=== PATIENT | male | born 1965 | race Caucasian/White ===

== ENCOUNTER 2017-11-23 12:09 | Emergency (ER) | payer BC ==
[2017-11-23] MEDS ORDERED: ALBUTEROL NEBULIZED 2.5 MG/3 ML INHALATION STA (12:30)
[2017-11-23] MEDS ORDERED: IPRATROPIUM 0.5 MG/2.5 ML NEBU INHALATION STA (12:30)
[2017-11-23] MEDS ORDERED: DEXAMETHASONE SOD PHOSPHATE 10 MG/ML 1 ML VIAL IV STA (12:31)
--- NOTE | 2017-11-23 12:36 | ED ---
General Adult HPI - General Chief complaint: Shortness of Breath Stated complaint: Pneumonia Time Seen by Provider: 11/23/17 12:19 Source: patient, RN notes reviewed, old records reviewed Mode of arrival: ambulatory Limitations: no limitations - History of Present Illness Initial comments: 52-year-old male presents for evaluation of cough and dyspnea. Patient has had a cough for the past 4 weeks. He was initially seen at urgent care, given steroids and antibiotic, cough felt improved. He did see his primary care physician proximally one week ago, was reinitiated on both antibiotics and steroids, cough has been persistent since that time. Cough is dry, nonproductive. Patient does have some mild chest pain associated with this which is worse with cough. Denies any central radiating or typical chest pain. No abdominal pain. No nausea vomiting. Patient initially had a fever approximately 4 weeks ago, he has not been febrile over the past week. He is was at bedside admitted to having a upper respiratory tract infection. Patient has no diagnosed history of asthma or COPD, he does have a smoking history from age 16 to his late 20s. - Related Data Home Medications Medication Instructions Recorded Confirmed Albuterol Inhaler [Ventolin Hfa 2 puff INHALATION RT-Q2H PRN 11/23/17 11/23/17 Inhaler] Albuterol Nebulized [Ventolin 2.5 mg INHALATION RT-Q4H PRN 11/23/17 11/23/17 Nebulized] Levofloxacin [Levaquin] 500 mg PO DAILY 11/23/17 11/23/17 Losartan/Hydrochlorothiazide 1 tab PO DAILY 11/23/17 11/23/17 [Losartan-Hctz 100-25 mg Tab] amLODIPine [Norvasc] 10 mg PO DAILY 11/23/17 11/23/17 buPROPion HCL [Wellbutrin XL] 300 mg PO DAILY 11/23/17 11/23/17 predniSONE See Taper PO DAILY 11/23/17 11/23/17 Previous Rx's Medication Instructions Recorded predniSONE 50 mg PO DAILY #5 tab 11/23/17 Allergies Allergy/AdvReac Type Severity Reaction Status Date / Time TE Inhibitors AdvReac Cough Verified 11/23/17 12:54 Review of Systems ROS Statement: Those systems with pertinent positive or pertinent negative responses have been documented in the HPI. ROS Other: All systems not noted in ROS Statement are negative. Past Medical History Past Medical History: Hypertension History of Any Multi-Drug Resistant Organisms: None Reported Past Surgical History: Cholecystectomy, Orthopedic Surgery Additional Past Surgical History / Comment(s): right shoulder surgery Past Psychological History: PTSD Smoking Status: Former smoker Past Alcohol Use History: Occasional Past Drug Use History: None Reported General Exam Limitations: no limitations General appearance: alert, in no apparent distress Head exam: Present: atraumatic, normocephalic Eye exam: Present: normal appearance, PERRL ENT exam: Present: normal exam Neck exam: Present: normal inspection. Absent: tenderness, meningismus Respiratory exam: Present: normal lung sounds bilaterally, other ( bronchospastic cough). Absent: respiratory distress, wheezes, rales, rhonchi Cardiovascular Exam: Present: regular rate, normal rhythm GI/Abdominal exam: Present: soft. Absent: distended, tenderness, guarding Extremities exam: Present: normal inspection, normal capillary refill. Absent: pedal edema, calf tenderness Back exam: Present: normal inspection, full ROM Neurological exam: Present: alert, oriented X3, CN II-XII intact. Absent: motor sensory deficit Psychiatric exam: Present: normal affect, normal mood Skin exam: Present: warm, dry, intact. Absent: cyanosis, diaphoretic Course Vital Signs 11/23/17 11/23/17 11/23/17 12:13 12:51 12:55 Temperature 97.9 F Pulse Rate 91 89 Respiratory 20 20 Rate Blood Pressure 105/68 O2 Sat by Pulse 96 Oximetry 11/23/17 13:10 Temperature Pulse Rate 91 Respiratory Rate Blood Pressure O2 Sat by Pulse Oximetry EKG Findings - EKG Comments: EKG Findings:: EKG shows normal sinus rhythm, ventricular rate 87, ME 150, castration 110, QTC 471, no signs of ischemia. Medical Decision Making - Medical Decision Making patient presenting with chief complaint of cough and dyspnea. The symptoms been present for approximately one month. Patient was sent in for evaluation by his primary care physician. There was some concern over CT findings which patient had earlier today, showed clear chest, no mass, no nodule, no effusion or pneumothorax. There was minimal diarrhea and the tree. Patient has had gallstones, cholecystectomy, and sphincterotomy. These are likely postsurgical changes. Patient has no fever, no right upper quadrant pain. No vomiting. He will return with any development of these symptoms. Laboratory studies reveal white blood cell count 12.3 mildly elevated, patient is on steroids. Hemoglobin stable. D-dimer negative. Troponin and BNP negative. A LT is mildly elevated, no recent for comparison patient is informed of this and will follow-up with his primary care physician for repeat testing. EKG shows no signs of ischemia. On reevaluation, patient is feeling much better, steroids and breathing treatment had improved his symptoms. Cough improved. He will continue taking last albuterol at home. He is restarted on a course of steroids. He will follow-up with his primary care physician and may require pulmonary follow-up in the near future. - Lab Data Result diagrams: 11/23/17 12:41 11/23/17 12:41 Lab Results 11/23/17 11/23/17 11/23/17 Range/Units 12:41 12:41 12:41 WBC 12.3 H (3.8-10.6) k/uL RBC 5.05 (4.30-5.90) m/uL Hgb 15.4 (13.0-17.5) gm/dL Hct 45.5 (39.0-53.0) % MCV 90.1 (80.0-100.0) fL MCH 30.4 (25.0-35.0) pg MCHC 33.8 (31.0-37.0) g/dL RDW 12.1 (11.5-15.5) % Plt Count 289 (150-450) k/uL Neutrophils % 72 % Lymphocytes % 18 % Monocytes % 7 % Eosinophils % 1 % Basophils % 0 % Neutrophils # 8.8 H (1.3-7.7) k/uL Lymphocytes # 2.2 (1.0-4.8) k/uL Monocytes # 0.9 (0-1.0) k/uL Eosinophils # 0.1 (0-0.7) k/uL Basophils # 0.0 (0-0.2) k/uL PT (9.0-12.0) sec INR (<1.2) APTT (22.0-30.0) sec D-Dimer (<0.60) mg/L FEU Sodium 138 (137-145) mmol/L Potassium 3.8 (3.5-5.1) mmol/L Chloride 104 (98-107) mmol/L Carbon Dioxide 24 (22-30) mmol/L Anion Gap 10 mmol/L BUN 19 (9-20) mg/dL Creatinine 0.73 (0.66-1.25) mg/dL Est GFR (MDRD) Af Amer >60 (>60 ml/min/1.73 sqM) Est GFR (MDRD) Non-Af >60 (>60 ml/min/1.73 sqM) Glucose 70 L (74-99) mg/dL Calcium 9.4 (8.4-10.2) mg/dL Magnesium 2.1 (1.6-2.3) mg/dL Total Bilirubin 0.5 (0.2-1.3) mg/dL AST 30 (17-59) U/L ALT 156 H (21-72) U/L Alkaline Phosphatase 62 (38-126) U/L Total Creatine Kinase 60 (55-170) U/L CK-MB (CK-2) 0.5 (0.0-2.4) ng/mL CK-MB (CK-2) Rel Index 0.8 Troponin I <0.012 (0.000-0.034) ng/mL NT-Pro-B Natriuret Pep pg/mL Total Protein 6.2 L (6.3-8.2) g/dL Albumin 3.7 (3.5-5.0) g/dL 11/23/17 11/23/17 Range/Units 12:41 12:41 WBC (3.8-10.6) k/uL RBC (4.30-5.90) m/uL Hgb (13.0-17.5) gm/dL Hct (39.0-53.0) % MCV (80.0-100.0) fL MCH (25.0-35.0) pg MCHC (31.0-37.0) g/dL RDW (11.5-15.5) % Plt Count (150-450) k/uL Neutrophils % % Lymphocytes % % Monocytes % % Eosinophils % % Basophils % % Neutrophils # (1.3-7.7) k/uL Lymphocytes # (1.0-4.8) k/uL Monocytes # (0-1.0) k/uL Eosinophils # (0-0.7) k/uL Basophils # (0-0.2) k/uL PT 9.7 (9.0-12.0) sec INR 1.0 (<1.2) APTT 22.0 (22.0-30.0) sec D-Dimer 0.25 (<0.60) mg/L FEU Sodium (137-145) mmol/L Potassium (3.5-5.1) mmol/L Chloride (98-107) mmol/L Carbon Dioxide (22-30) mmol/L Anion Gap mmol/L BUN (9-20) mg/dL Creatinine (0.66-1.25) mg/dL Est GFR (MDRD) Af Amer (>60 ml/min/1.73 sqM) Est GFR (MDRD) Non-Af (>60 ml/min/1.73 sqM) Glucose (74-99) mg/dL Calcium (8.4-10.2) mg/dL Magnesium (1.6-2.3) mg/dL Total Bilirubin (0.2-1.3) mg/dL AST (17-59) U/L ALT (21-72) U/L Alkaline Phosphatase (38-126) U/L Total Creatine Kinase (55-170) U/L CK-MB (CK-2) (0.0-2.4) ng/mL CK-MB (CK-2) Rel Index Troponin I (0.000-0.034) ng/mL NT-Pro-B Natriuret Pep 20 pg/mL Total Protein (6.3-8.2) g/dL Albumin (3.5-5.0) g/dL Disposition Clinical Impression: Chronic bronchitis Disposition: HOME SELF-CARE Condition: Good Instructions: Chronic Bronchitis (ED), Chronic Cough (ED) Prescriptions: predniSONE 50 mg PO DAILY #5 tab Referrals: Josh Cloud MD [Primary Care Provider] - 1-2 days Time of Disposition: 14:32
[2017-11-23 13:03] LABS: Basophils % (A) 0 %; Eosinophils # (A) 0.1 k/uL (0-0.7); Eosinophils % (A) 1 %; HCT 45.5 % (39.0-53.0); HGB 15.4 gm/dL (13.0-17.5); Lymphocytes # (A) 2.2 k/uL (1.0-4.8); Lymphocytes % (A) 18 %; MCH 30.4 pg (25.0-35.0); MCHC 33.8 g/dL (31.0-37.0); MCV 90.1 fL (80.0-100.0); Mean Platelet Volume 6.7; Monocytes # (A) 0.9 k/uL (0-1.0); Monocytes % (A) 7 %; Neutrophils # (A) 8.8 k/uL (1.3-7.7); Neutrophils % (A) 72 %; Platelet Count 289 k/uL (150-450); RBC 5.05 m/uL (4.30-5.90); RDW 12.1 % (11.5-15.5); WBC 12.3 k/uL (3.8-10.6)
[2017-11-23 13:14] LABS: D-Dimer 0.25 mg/L FEU (<0.60)
[2017-11-23 13:18] LABS: ALT 156 U/L (21-72); AST 30 U/L (17-59); Albumin 3.7 g/dL (3.5-5.0); Alkaline Phosphatase 62 U/L (38-126); Anion Gap 10 mmol/L; Blood Urea Nitrogen 19 mg/dL (9-20); Calcium 9.4 mg/dL (8.4-10.2); Carbon Dioxide 24 mmol/L (22-30); Chloride 104 mmol/L (98-107); Glucose 70 mg/dL (74-99); Magnesium 2.1 mg/dL (1.6-2.3); Potassium 3.8 mmol/L (3.5-5.1); Prothrombin Time 9.7 sec (9.0-12.0); Sodium 138 mmol/L (137-145); Total Bilirubin 0.5 mg/dL (0.2-1.3); Total Protein 6.2 g/dL (6.3-8.2)
[2017-11-23 13:24] LABS: Creatine Kinase 60 U/L (55-170)
[2017-11-23 13:37] LABS: Creatine Kinase MB 0.5 ng/mL (0.0-2.4); Troponin I <0.012 ng/mL (0.000-0.034)
[2017-11-23 14:46] VITALS: BP 130/65; PULSE 77; RESP 16; TEMP 98
== END 2017-11-23 14:45 | disposition home or self-care (01) ==
LOC: EC 12:09
DX: J42 Unspecified chronic bronchitis (principal); I10 Essential (primary) hypertension; F43.10 Post-traumatic stress disorder, unspecified; Z87.891 Personal history of nicotine dependence; Z79.52 Long term (current) use of systemic steroids; Z79.899 Other long term (current) drug therapy; Z88.8 Allergy status to other drugs, medicaments and biological substances
CPT/HCPCS: 36415; 94640; 93005; 85379; 83880; 80053; 82550; 82553; 83735; 84484; 85025; 85610; 85730; 99285; 96374; J1100; 71250

== ENCOUNTER → 2017-11-23 | Outpatient (CLI) | payer BC ==
--- NOTE | 2017-11-23 11:50 | CT ---
EXAMINATION TYPE: CT chest wo con DATE OF EXAM: 11/23/2017 COMPARISON: NONE HISTORY: Pneumonia, cough CT DLP: 745 mGycm. Automated Exposure Control for Dose Reduction was Utilized. TECHNIQUE: CT scan of the thorax is performed without IV contrast. FINDINGS: Lack of intravenous contrast could compromise sensitivity. LUNGS: The lungs are grossly clear, there is no concerning parenchymal mass or nodule identified. T here is no pleural effusion or pneumothorax seen. The tracheobronchial tree is patent. MEDIASTINUM: Lack of IV contrast is noted to limit evaluation for mediastinal and especially hilar ad enopathy. There are no definitive greater than 1 cm hilar or mediastinal lymph nodes. There are calci fied left hilar nodes. Calcified left lower lobe granuloma is noted with some associated scarring. N o cardiomegaly or pericardial effusion is seen. OTHER: Patient is post cholecystectomy. Pneumobilia is present. Small focus of air also present at th e head of the pancreas. Coronary artery calcifications noted. IMPRESSION: Correlate for prior sphincterotomy causing pneumobilia. Postop change. Old granulomatous disease. Noncontrast exam.
== END | disposition home or self-care (01) ==
LOC: RADCTMAIN 11:12
PROVIDERS: ATTEND Family Medicine
DX: J18.9 Pneumonia, unspecified organism (principal); Z98.890 Other specified postprocedural states
CPT/HCPCS: 71250

== ENCOUNTER → 2017-12-14 | Outpatient (CLI) | payer BC ==
--- NOTE | 2017-12-14 09:38 | US ---
EXAMINATION TYPE: US abdomen complete DATE OF EXAM: 12/14/2017 COMPARISON: None CLINICAL HISTORY: 52-year-old male R94.5 Abnormal results of liver function study. Abnormal labs, GB removed x 1998 TECHNIQUE: Multiple sonographic images of the abdomen are obtained. FINDINGS: Liver Length: 16.2 cm CHD: 3.8 mm Spleen: 11.3 cm Right Kidney: 11.3 x 5.8 x 7.3 cm Left Kidney: 11.8 x 5.0 x 7.3 cm Pancreas: The tail is obscured by overlying bowel gas Liver: Borderline size with diffuse heterogeneity, echogenic appearance with far field attenuation. This secondarily limits assessment for focal lesion. Gallbladder: Surgically absent Evidence for sonographic Haley's sign: neg CHD: wnl Spleen: wnl Right Kidney: No hydronephrosis. There is either a medial parapelvic cyst or extrarenal pelvis measu ring 2.2 x 2.0 x 1.8 cm Left Kidney: No hydronephrosis Upper IVC: wnl Abd Aorta: Upper abdominal aorta is ectatic at 2.5 cm. IMPRESSION: 1. Borderline size of the liver with diffuse heterogeneity and increased attenuation. Correlate for h epatic steatosis or other nonspecific hepatocellular disease. 2. Status post cholecystectomy. No biliary ductal dilatation.
== END | disposition home or self-care (01) ==
LOC: RADUSWWP 08:57
PROVIDERS: ATTEND Family Medicine
DX: R94.5 Abnormal results of liver function studies (principal); Z90.49 Acquired absence of other specified parts of digestive tract
CPT/HCPCS: 76700

== ENCOUNTER 2018-01-02 12:05 | Day surgery (SDC) | payer BC ==
[2017-12-29 14:54] VITALS: BMI 36.9
[~2018-01-02 12:05] MED LIST: LACTATED RINGERS 1,000 ML IV SCH
[2018-01-02 12:36] VITALS: TEMP 97.6
[2018-01-02] MEDS ORDERED: LIDOCAINE 1% 20 ML VIAL (10MG/ML) FOR IV START INTRADERMA ONE (12:46)
[2018-01-02] MEDS ORDERED: PROPOFOL 10 MG/ML 20 ML VIAL IV ONE (12:51)
[2018-01-02] MEDS ORDERED: LIDOCAINE 1% INJ 10MG/ML (20 ML MDV) ONE (12:51)
[2018-01-02 13:20] VITALS: BP 140/87; PULSE 88; RESP 12
--- NOTE | 2018-01-02 13:20 | P.PCN ---
Date of Procedure: 01/02/18 Procedure(s) Performed: Procedure: Colonoscopy and polypectomy. Preoperative diagnosis: Screening for neoplasia. Postoperative diagnosis: Small rectal polyp snared but no large polyps or cancer. Preparation: HalfLytely prep. Sedation: Was provided by anesthesia. Brief clinical history: The patient is a 52-year-old male who is scheduled for this evaluation for screening for neoplasia age being his risk factor in addition to history of polyps. He has no abdominal complaints, bleeding or anemia. His last colonoscopy was around 5 years ago. Procedure: With the patient on his left lateral decubitus position and after informed consent and adequate sedation, the perianal area was inspected and it did not show any fissures or fistulas. There were no masses felt on digital rectal examination. The Olympus CFQ 160L video colonoscope was then inserted in the rectum in the usual fashion and advanced to the cecum. There was a small polyp in the rectum, within 1-2 cm from the anal canal, which I snared and retrieved by suction but there was no other significant polyps or tumors seen. I retroflexed the endoscope in the rectum before the endoscope was withdrawn. The patient tolerated the procedure well. Plan: The patient was reassured. He will follow up with you as planned and I recommended repeat exam in 5 years.
== END 2018-01-02 13:59 | disposition home or self-care (01) ==
LOC: ORWHC2ENDO 12:05
DX: Z12.11 Encounter for screening for malignant neoplasm of colon (principal); D12.8 Benign neoplasm of rectum; K44.9 Diaphragmatic hernia without obstruction or gangrene; I10 Essential (primary) hypertension; G47.33 Obstructive sleep apnea (adult) (pediatric); J45.909 Unspecified asthma, uncomplicated; Z79.899 Other long term (current) drug therapy; Z88.8 Allergy status to other drugs, medicaments and biological substances
CPT/HCPCS: 88305; 45385; J2001; J2704

== ENCOUNTER 2018-06-22 12:57 | Day surgery (SDC) | payer BC ==
[2018-06-22] MEDS ORDERED: LIDOCAINE 1% 20 ML VIAL (10MG/ML) FOR IV START INTRADERMA PRN (13:05)
[2018-06-22] MEDS ORDERED: LACTATED RINGERS 1,000 ML IV SCH (13:05)
[2018-06-22 13:17] VITALS: RESP 16; TEMP 98.1
[2018-06-22] MEDS ORDERED: LIDOCAINE 1% INJ 10MG/ML (20 ML MDV) ONE (14:04)
[2018-06-22] MEDS ORDERED: PROPOFOL 10 MG/ML 20 ML VIAL IV ONE (14:04)
--- NOTE | 2018-06-22 14:35 | P.PCN ---
Date of Procedure: 06/22/18 Procedure(s) Performed: Procedure: Esophagogastroduodenoscopy and biopsy. Preoperative diagnosis: Chronic reflux symptoms requiring therapy. Postoperative diagnosis: 1. Sliding hiatal hernia with no obvious esophagitis or complicated reflux disease. 2. Mild antral gastritis. 3. Multiple biopsies obtained from the duodenum, antrum and esophagus. Preparation sedation: Was provided by anesthesia. Brief clinical history: The patient is a 52-year-old male with chronic reflux symptoms that has been worsening over the last 4 to 6 months. Currently is taking PPI with improvement. This evaluation is scheduled to assess the degree of his esophagitis rule out complicated reflux disease or other pathology. Procedure: With the patient on his left lateral decubitus position and after informed consent and adequate sedation, I passed the Olympus-GIF 160 video upper endoscope through the cricopharyngeus down the esophagus. GE junction was around 40-41 cm from the incisors and there was a small sliding hiatal hernia. The esophagus did not show any obvious esophagitis or complicated reflux disease. The endoscope was then passed into the stomach which was insufflated with air and inspected in detail including the retroflex view in the cardia. There was some mottling and erythema in the antrum but no ulcers or erosions. Pyloric channel, duodenal bulb, post bulbar area and descending duodenum appeared within normal limits. Because of his symptoms, I obtained biopsies from the duodenum, antrum and esophagus then the endoscope was withdrawn. The patient tolerated the procedure well. Plan: The patient was reassured. Will await biopsy results and make further plans based on his course and biopsy results.
[2018-06-22 15:04] VITALS: BP 135/61; PULSE 69
== END 2018-06-22 15:09 | disposition home or self-care (01) ==
LOC: ORWHC2ENDO 12:57
DX: K29.50 Unspecified chronic gastritis without bleeding (principal); K21.9 Gastro-esophageal reflux disease without esophagitis; K44.9 Diaphragmatic hernia without obstruction or gangrene; G47.33 Obstructive sleep apnea (adult) (pediatric); I10 Essential (primary) hypertension; F32.9 Major depressive disorder, single episode, unspecified; F43.10 Post-traumatic stress disorder, unspecified; Z88.8 Allergy status to other drugs, medicaments and biological substances; Z79.899 Other long term (current) drug therapy
CPT/HCPCS: 88305; 43239; J2001; J2704

== ENCOUNTER → 2018-06-29 | Outpatient (CLI) | payer BC ==
[2018-06-29 13:25] VITALS: BMI 37.6
== END | disposition home or self-care (01) ==
LOC: MNTWWP 12:56
DX: K76.0 Fatty (change of) liver, not elsewhere classified (principal)
CPT/HCPCS: 97802

== ENCOUNTER → 2019-09-06 | Outpatient (CLI) | payer BC ==
--- NOTE | 2019-09-06 20:13 | CONS ---
CONSULTATION DATE OF SERVICE: 09/06/2019 This patient is a 54-year-old gentleman who has been re-evaluated in the sleep center for obstructive sleep apnea-hypopnea syndrome. HISTORY OF PRESENT ILLNESS/SLEEP-WAKE EVALUATION: This patient was diagnosed with obstructive sleep apnea in 2012. At that time apnea- hypopnea index was 22.3. He was started on treatment with CPAP. the patient tried to use CPAP, but he always had problems related to his nasal mask, and he wakes up from sleep with the CPAP. He was not able to use CPAP equipment for the last year because of that. At present his sleep schedule is from 6 a.m. until 2 p.m. 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 On his days off, he may sleep from 10 p.m. until 11 a.m. No problems with falling asleep. No TV in bedroom. He wakes up from sleep once with nocturia, episodes of heartburn and sweating. Russell Sleepiness Scale is 9. No history of hypnagogic hallucinations, sleep paralysis or cataplexy. PAST MEDICAL HISTORY: Past medical history is positive for hypertension and depression. PAST SURGICAL HISTORY: Cholecystectomy and surgery for rotator cuff problems. MEDICATIONS: 1. Amlodipine. 2. Sertraline. 3. Bupropion. 4. Losartan. SOCIAL HISTORY: Negative for smoking. Alcohol consumption occasional. FAMILY HISTORY: Hypertension. REVIEW OF SYSTEMS: The patient does not sleep well with the CPAP equipment. He feels sometimes sleepy during the day. PHYSICAL EXAMINATION: GENERAL: A pleasant gentleman without distress. VITAL SIGNS: BP 131/87, HR 79, RR 16, height 5 feet 8-1/2 inches, weight 254.6 pounds, body mass index 38.0, temperature 98.0, oxygen saturation at room air 95%. HEENT: PERRLA, EOMI. Evaluation of oropharynx showed tongue protrudes midline. Low position of soft palate. Mallampati III. Tonsils present bilaterally. Left tonsil more than right tonsil. NECK: Supple. No JVD. Thyroid is not palpable. LUNGS: Clear to percussion and to auscultation. Good air exchange. No wheezing or rhonchi. HEART: S1, S2 regular. No murmurs, gallops or rubs. ABDOMEN: Slightly obese. EXTREMITIES: No clubbing or cyanosis. HIGH SCHOOL MUSIC DIRECTOR: Awake, alert, and oriented X3. Cranial nerves 2 to 7 intact. There is no fasciculation or atrophy. noted. No focal deficits observed. IMPRESSION: 1. History of obstructive sleep apnea since 2012. The patient has tried to use CPAP equipment but has problems; awakenings from sleep; does not feel comfortable with the mask. He may feel sleepy during the day. Oropharynx reveals low position of soft palate. 2. Obesity; body mass index 38.0. 3. Hypertension. 4. History of depression. 5. Status post cholecystectomy. 6. Status post right rotator cuff surgery. PLAN: 1. Repeat the CPAP titration for re-evaluation of effective CPAP pressure at the present time and also to fit the patient with a comfortable mask. 2. Patient should receive new CPAP equipment after his sleep study. 3. Sleep hygiene with regular time in bed for at least 7-1/2 to 8 hours. 4. No driving if feeling any sleepiness. Thank you very much for allowing me to participate in the management of your patient. Sincerely, Eddy Gibson MD, PhD, FAASM Diplomat of [place] [employer] Specialties [place] [employer] Medicine Basket Mender of [facility] [place] MMODL / IJN: [id number] /
== END | disposition home or self-care (01) ==
LOC: SLEEP 14:42
PROVIDERS: ATTEND Internal Medicine
DX: G47.33 Obstructive sleep apnea (adult) (pediatric) (principal); E66.9 Obesity, unspecified; Z68.38 Body mass index [BMI] 38.0-38.9, adult; I10 Essential (primary) hypertension; Z86.59 Personal history of other mental and behavioral disorders; Z90.49 Acquired absence of other specified parts of digestive tract; Z98.890 Other specified postprocedural states
CPT/HCPCS: 99211

== ENCOUNTER → 2020-01-10 | Outpatient (CLI) | payer BC ==
--- NOTE | 2020-01-10 16:00 | PN ---
PROGRESS NOTE DATE OF SERVICE: 01/10/2020 This patient is a 54-year-old gentleman who has been followed in Sleep Center for treatment of obstructive sleep apnea-hypopnea syndrome. In October the patient had CPAP titration and after that received a new CPAP unit. Today is his first visit after he started to use his new CPAP equipment. The patient is able to use the machine, but sometimes he has problems with the mask. The mask was changed. Now he is using AirFit P30i nasal pillows, medium size. I checked his CPAP unit. Pressure is 11 cm of water. Usage for the last month was 25/30 nights and 17/30 nights for more than 4 hours, with average usage 4.9 hours per night. Leak is 4 L/minute, which is perfect. Apnea-hypopnea index is in the range of 8, which is slightly above normal range. MEDICATIONS: Amlodipine, Sertraline, bupropion, losartan. PHYSICAL EXAMINATION: GENERAL: A pleasant patient in no distress. VITAL SIGNS: BP 130/78, HR 83, RR 16, weight 263.2, temperature 98.0, oxygen saturation at room air 95%. HEENT: PERRLA, EOMI. Evaluation of oropharynx showed tongue protrudes midline. Extremely low position of soft palate. Mallampati IV. NECK: Supple. No JVD. Thyroid is not palpable. LUNGS: Clear to percussion and to auscultation. Good air exchange. No wheezing or rhonchi. HEART: S1, S2 regular. No murmurs, gallops or rubs. ABDOMEN: Obese. EXTREMITIES: No clubbing or cyanosis. DESK ASSISTANT: Awake, alert, and oriented X3. Cranial nerves 2 to 7 intact. There is no fasciculation or atrophy. noted. No focal deficits observed. IMPRESSION: 1. Obstructive sleep apnea-hypopnea syndrome. Respiration improved on treatment with CPAP. 2. Obesity. 3. Mild periodic limb movements during titration. 4. Hypertension. 5. History of depression. 6. Status post cholecystectomy. 7. Status post rotator cuff surgery on the right side. 8. 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 PLAN: 1. I will change regimen in the machine to the range of pressure 8 to 15 cm of water. 2. Patient will continue to use CPAP equipment every night for the whole night. 3. Losing weight. 4. No driving if feeling any sleepiness. Thank you very much for allowing me to participate in the management of your patient. Sincerely, Eddy Gibson MD, PhD, FAASM Diplomat of [place] [employer] [place] [employer] Editor Publications of [facility] [place] SRIRAM / REMY: [id number] /
== END | disposition home or self-care (01) ==
LOC: SLEEP 14:07
PROVIDERS: ATTEND Internal Medicine
DX: G47.33 Obstructive sleep apnea (adult) (pediatric) (principal); E66.9 Obesity, unspecified; G47.61 Periodic limb movement disorder; I10 Essential (primary) hypertension; Z99.89 Dependence on other enabling machines and devices; Z86.59 Personal history of other mental and behavioral disorders; Z90.49 Acquired absence of other specified parts of digestive tract; Z98.890 Other specified postprocedural states; Z79.899 Other long term (current) drug therapy

== ENCOUNTER → 2020-02-28 | Outpatient (CLI) | payer OTHER ==
--- NOTE | 2020-02-28 10:45 | MR ---
EXAMINATION TYPE: MR knee RT wo con DATE OF EXAM: 02/28/2020 COMPARISON: None HISTORY: Rt knee pain, injured while running 4 weeks ago TECHNIQUE: Multiplanar, multisequence images of the knee is performed without IV contrast. FINDINGS: MEDIAL MENISCUS: Radial tear noted posterior horn medial meniscus. Anterior horn is unremarkable. LATERAL MENISCUS: Anterior and posterior horns are intact without tear. CRUCIATE LIGAMENTS: The anterior and posterior cruciate ligaments are intact and unremarkable. COLLATERAL LIGAMENTS: The medial collateral ligament and lateral collateral ligament complex are inta ct and unremarkable. EXTENSOR MECHANISM: Visualized quadriceps and patellar tendons are intact. EFFUSION: No significant suprapatellar joint effusion. POPLITEAL CYST: No popliteal/mendez cyst. TRICOMPARTMENT SPACES: Intact CARTILAGE: Intact BONE MARROW SIGNAL: No focal abnormal marrow signal is appreciated. OTHER: No additional significant abnormality is appreciated. IMPRESSION: 1.Radial tear noted posterior horn medial meniscus.
== END | disposition home or self-care (01) ==
LOC: RADMRIMAIN 09:13
PROVIDERS: ATTEND Family Medicine
DX: S83.241A Other tear of medial meniscus, current injury, right knee, initial encounter (principal)

== ENCOUNTER → 2020-05-06 | Outpatient (CLI) | payer OTHER ==
--- NOTE | 2020-05-06 14:47 | US ---
EXAMINATION TYPE: US venous doppler duplex LE RT DATE OF EXAM: 05/06/2020 2:29 PM COMPARISON: NONE CLINICAL HISTORY: I74.9 EMBOLISM AND THROMBOSIS. Calf pain. Hx recent right knee surgery. No rednes s. No on blood thinners. SIDE PERFORMED: Right TECHNIQUE: The lower extremity deep venous system is examined utilizing real time linear array sonog jose armando with graded compression, doppler sonography and color-flow sonography. VESSELS IMAGED: External Iliac Vein (EIV) Common Femoral Vein Deep Femoral Vein Greater Saphenous Vein * Femoral Vein Popliteal Vein Small Saphenous Vein * Proximal Calf Veins (* superficial vessels) Right Leg: Negative for DVT Grayscale, color doppler, spectral doppler imaging performed of the deep veins of the right lower ext remity. There is normal flow, compressibility, vascular waveforms. IMPRESSION: No ultrasound evidence for acute DVT in the right lower extremity.
== END | disposition home or self-care (01) ==
LOC: RADUSWWP 13:56
PROVIDERS: ATTEND Orthopaedic Surgery
DX: I74.9 Embolism and thrombosis of unspecified artery (principal)

== ENCOUNTER 2025-01-25 13:14 | Emergency (ER) | payer BC, OTHER ==
[2025-01-25 13:36] VITALS: RESP 18; TEMP 97.9
--- NOTE | 2025-01-25 13:59 | ED ---
Nausea/Vomiting/Diarrhea HPI - General Source: patient, RN notes reviewed Mode of arrival: ambulatory Limitations: no limitations <Eugenia Martin - Last Filed: 01/25/25 15:47> - General Source: patient, RN notes reviewed Mode of arrival: ambulatory Limitations: no limitations - History of Present Illness MD complaint: nausea, vomiting Onset/Timin -: days(s) <Sanjay Larsen - Last Filed: 01/26/25 14:12> - General Chief complaint: Nausea/Vomiting/Diarrhea Stated complaint: poss food poisoning Time Seen by Provider: 01/25/25 13:59 - History of Present Illness Initial comments: 59-year-old male presented the ER for evaluation of abdominal pain. Patient states around 4 PM yesterday he was having a couple coffee with cream when he started to experience a abdominal tightness/bloating sensation. He states shortly after that he had an episode of emesis. He states he has been continuously nauseous with repeated bouts of emesis throughout the night. He admits to chills with these episodes. He denies any known fevers. Patient reports "peanut butter like" stool. He does report he has dizzy episodes that correlate with vomiting and abdominal tightness. He also reports when belching it tastes like eggs. Patient is concerned he may have food poisoning due to coffee creamer and/or mangoes consumed yesterday. No urinary complaints, chest pain, shortness of breath, lightheadedness, fevers, peripheral edema or other complaints. Patient reports a history of a cholecystectomy 25 years ago. Lopez guerrero has not taken anything for his symptoms at this time. No history of ulcerative colitis or Crohn's disease. (Eugenia Martin) This is a 59-year-old male presenting with GI symptoms starting yesterday afternoon. Patient endorses abdominal cramping with nausea/vomiting starting last night as well as loose stool. Patient endorses possible intake of coffee creamer or ranjit as possible cause of current symptoms. Also endorses some associated dizziness and chills. Denies [id number] medication use. Denies fever, chest pain, dyspnea, hematemesis. (Sanjay Larsen) - Related Data Home Medications Medication Instructions Recorded Confirmed Albuterol Inhaler [Ventolin Hfa 2 puff INHALATION DAILY PRN 11/23/17 06/22/18 Inhaler] Albuterol Nebulized [Ventolin 2.5 mg INHALATION Q4HR PRN 11/23/17 06/22/18 Nebulized] Losartan/Hydrochlorothiazide 1 tab PO DAILY 11/23/17 06/22/18 [Losartan-Hctz 100-25 mg Tab] amLODIPine [Norvasc] 10 mg PO DAILY 11/23/17 06/22/18 buPROPion HCL [Wellbutrin XL] 300 mg PO DAILY 11/23/17 06/22/18 Previous Rx's Medication Instructions Recorded Ondansetron [Zofran] 4 mg PO Q8HR PRN #10 tab 01/25/25 Allergies Allergy/AdvReac Type Severity Reaction Status Date / Time TE Inhibitors AdvReac Cough Verified 01/25/25 13:36 Review of Systems ROS Other: All systems not noted in ROS Statement are negative. <Eugenia Martin - Last Filed: 01/25/25 15:47> ROS Other: All systems not noted in ROS Statement are negative. <Sanjay Larsen - Last Filed: 01/26/25 14:12> ROS Statement: Those systems with pertinent positive or pertinent negative responses have been documented in the HPI. Past Medical History Past Medical History: Hypertension, Pneumonia, Sleep Apnea/CPAP/BIPAP Additional Past Medical History / Comment(s): hiatal hernia, History of Any Multi-Drug Resistant Organisms: None Reported Past Surgical History: Cholecystectomy, Orthopedic Surgery Additional Past Surgical History / Comment(s): right shoulder rotator cuff surgery Past Anesthesia/Blood Transfusion Reactions: No Reported Reaction Past Psychological History: Depression, PTSD Past Alcohol Use History: Rare Past Drug Use History: None Reported - Past Family History Mother Family Medical History: No Reported History <Eugenia Martin - Last Filed: 01/25/25 15:47> General Exam Limitations: no limitations General appearance: alert, in no apparent distress Respiratory exam: Present: normal lung sounds bilaterally. Absent: respiratory distress, wheezes, rales, rhonchi, stridor Cardiovascular Exam: Present: regular rate, normal rhythm, normal heart sounds. Absent: systolic murmur, diastolic murmur, rubs, gallop, clicks GI/Abdominal exam: Present: soft, tenderness (Upper quadrants), normal bowel sounds Neurological exam: Present: alert, oriented X3, CN II-XII intact Skin exam: Present: warm, dry, intact, normal color. Absent: rash <Eugenia Martin - Last Filed: 01/25/25 15:47> Limitations: no limitations General appearance: alert, in no apparent distress Head exam: Present: atraumatic, normocephalic, normal inspection Eye exam: Present: normal appearance, PERRL, EOMI. Absent: scleral icterus, conjunctival injection, periorbital swelling ENT exam: Present: normal exam, mucous membranes moist Neck exam: Present: normal inspection. Absent: tenderness, meningismus, lymphadenopathy Respiratory exam: Present: normal lung sounds bilaterally. Absent: respiratory distress, wheezes, rales, rhonchi, stridor Cardiovascular Exam: Present: regular rate, normal rhythm, normal heart sounds. Absent: systolic murmur, diastolic murmur, rubs, gallop, clicks GI/Abdominal exam: Present: soft, tenderness, normal bowel sounds. Absent: distended, guarding, rebound, rigid Extremities exam: Present: normal inspection, full ROM, normal capillary refill. Absent: tenderness, pedal edema, joint swelling, calf tenderness Back exam: Present: normal inspection Neurological exam: Present: alert, oriented X3, CN II-XII intact Psychiatric exam: Present: normal affect, normal mood Skin exam: Present: warm, dry, intact, normal color. Absent: rash <Sanjay Larsen - Last Filed: 01/26/25 14:12> - General Exam Comments Initial Comments: Visual Physical Exam Vital signs reviewed General: Well-appearing, nontoxic, no acute distress. Head: Normocephalic, atraumatic Eyes: PERRLA, EOMI ENT: Airway patent Chest: Nonlabored breathing Skin: No visual rash, normal skin tone Neuro: Alert and oriented 3 Musculoskeletal: No gross abnormalities (Eugenia Martin) Course Vital Signs 01/25/25 01/25/25 13:33 16:54 Temperature 97.9 F Pulse Rate 94 83 Respiratory 18 18 Rate Blood Pressure 129/86 154/95 O2 Sat by Pulse 96 97 Oximetry Medical Decision Making <Eugenia Martin - Last Filed: 01/25/25 15:47> - Lab Data Result diagrams: 01/25/25 14:35 01/25/25 14:35 <Suzie,Sanjay - Last Filed: 01/26/25 14:12> - Medical Decision Making I performed the quick note portion of this chart. Electronically signed by LOPEZ Garcia-Gilbert Was pt. sent in by a medical professional or institution ([facility], [facility], urgent care, hospital, or correction...) When possible be specific @ -No Did you speak to anyone other than the patient for history (EMS, parent, family, police, friend...)? What history was obtained from this source @ -No Did you review nursing and triage notes (agree or disagree)? Why? @ -I reviewed and agree with nursing and triage notes Were old charts reviewed (outside hosp., previous admission, EMS record, old EKG, old radiological studies, urgent care reports/EKG's, correction records)? Report findings @ -No old charts were reviewed Differential Diagnosis (chest pain, altered mental status, abdominal pain women, abdominal pain men, vaginal bleeding, weakness, fever, dyspnea, syncope, headache, dizziness, GI bleed, back pain, seizure, CVA, palpatations, mental health, musculoskeletal)? @Differential Abdominal Pain Men:Appendicitis, cholecystitis, diverticulosis, ischemic bowel, pancreatitis, hepatitis, UTI, gastroenteritis, AAA, incarcerated hernia, bowel obstruction, constipation, inflammatory bowel, hepatitis, peptic ulcer disease, splenic infarction, perforated viscus, testicular torsion, this is not meant to be an all-inclusive list EKG interpreted by me (3pts min.). @ -None done X-rays interpreted by me (1pt min.). @ -None done CT interpreted by me (1pt min.). @ -None done U/S interpreted by me (1pt. min.). @ -None done What testing was considered but not performed or refused? (CT, X-rays, U/S, labs)? Why? @ -None What meds were considered but not given or refused? Why? @ -None Did you discuss the management of the patient with other professionals (professionals i.e. [facility] Barajas, [facility], lab, RT, psych nurse, case management social worker, cashier courtesy booth, teacher, employment security officer, director of casework department)? Give summary @ -No Was smoking cessation discussed for >3mins.? @ -No Was critical care preformed (if so, how long)? @ -No Were there social determinants of health that impacted care today? How? (Home lessness, low income, unemployed, alcoholism, drug addiction, transportation, low edu. Level, literacy, decrease access to med. care, senior living, rehab)? @ -No Was there de-escalation of care discussed even if they declined (Discuss DNR or withdrawal of care, Hospice)? DNR status @ -No What co-morbidities impacted this encounter? (DM, HTN, Smoking, COPD, CAD, Cancer, CVA, ARF, Chemo, Hep., AIDS, mental health diagnosis, sleep apnea, morbid obesity)? @ -None Was patient admitted / discharged? Hospital course, mention meds given and route, prescriptions, significant lab abnormalities, going to OR and other pertinent info. @ -[59-year-old male presented the ER for evaluation of abdominal pain. Upon rooming, history and physical exam completed. Vitals within acceptable limits. There is focal upper abdominal tenderness to exam. Symptomatic treatment with IV fluids, Toradol and Zofran. Laboratory studies obtained and pending at my shift completion. Patient signed out to Sanjay Larsen PA-C pending laboratory results and disposition. (Eugenia Martin) Was pt. sent in by a medical professional or institution (, [facility], [facility] [facility], urgent care, hospital, or correction...) When possible be specific @ -No Did you speak to anyone other than the patient for history (EMS, parent, family, police, friend...)? What history was obtained from this source @ -No Did you review nursing and triage notes (agree or disagree)? Why? @ -I reviewed and agree with nursing and triage notes Were old charts reviewed (outside hosp., previous admission, EMS record, old EKG, old radiological studies, urgent care reports/EKG's, correction records)? Report findings @ -No old charts were reviewed Differential Diagnosis (chest pain, altered mental status, abdominal pain women, abdominal pain men, vaginal bleeding, weakness, fever, dyspnea, syncope, headache, dizziness, GI bleed, back pain, seizure, CVA, palpatations, mental health, musculoskeletal)? @ -Differential Abdominal Pain Men: Appendicitis, cholecystitis, diverticulosis, ischemic bowel, pancreatitis, hepatitis, UTI, gastroenteritis, AAA, incarcerated hernia, bowel obstruction, constipation, inflammatory bowel, hepatitis, peptic ulcer disease, splenic infarction, perforated viscus, testicular torsion, this is not meant to be an all-inclusive list EKG interpreted by me (3pts min.). @ -Not done X-rays interpreted by me (1pt min.). @ -None done CT interpreted by me (1pt min.). @ -None done U/S interpreted by me (1pt. min.). @ -None done What testing was considered but not performed or refused? (CT, X-rays, U/S, labs)? Why? @ -None What meds were considered but not given or refused? Why? @ -None Did you discuss the management of the patient with other professionals (professionals i.e. , [facility], [employer]LE [facility]ER, lab, RT, psych nurse, case management social worker, cashier courtesy booth, teacher, employment security officer, director of casework department)? Give summary @ -No Was smoking cessation discussed for >3mins.? @ -No Was critical care preformed (if so, how long)? @ -No Were there social determinants of health that impacted care today? How? (Homelessness, low income, unemployed, alcoholism, drug addiction, transportation, low edu. Level, literacy, decrease access to med. care, senior living, rehab)? @ -No Was there de-escalation of care discussed even if they declined (Discuss DNR or withdrawal of care, Hospice)? DNR status @ -No What co-morbidities impacted this encounter? (DM, HTN, Smoking, COPD, CAD, Cancer, CVA, ARF, Chemo, Hep., AIDS, mental health diagnosis, sleep apnea, morbid obesity)? @ -None Was patient admitted / discharged? Hospital course, mention meds given and route, prescriptions, significant lab abnormalities, going to OR and other pertinent info. @ -Patient care handed off to me from Eugenia Martin PA-C. Lab work shows leukocytosis 12.7 with left shift and otherwise unremarkable. Cepheid test negative. Patient initially provided IV normal saline, Zofran and Toradol. Patient notes improvement in symptoms following treatment. Zofran sent to patient's pharmacy. Advise seamus tea/for ongoing nausea. Increase rehydration with Pedialyte/Gatorade. Also advised MARIBEL diet. Discussed patient with Dr. Hagan. Undiagnosed new problem with uncertain prognosis? @ -No Drug Therapy requiring intensive monitoring for toxicity (Heparin, Nitro, Insulin, Cardizem)? @ -No Were any procedures done? @ -No Diagnosis/symptom? @ -Foodborne gastroenteritis Acute, or Chronic, or Acute on Chronic? @ -Acute Uncomplicated (without systemic symptoms) or Complicated (systemic symptoms)? @ -Complicated Side effects of treatment? @ -No Exacerbation, Progression, or Severe Exacerbation? @ -No Poses a threat to life or bodily function? How? (Chest pain, [place], [place], pneumonia, PE, COPD, DKA, ARF, appy, cholecystitis, CVA, Diverticulitis, Homicidal, Suicidal, threat to staff... and all critical care pts) @ -No (Sanjay Larsen) - Lab Data Lab Results 01/25/25 01/25/25 01/25/25 Range/Units 13:43 13:43 14:35 WBC 12.7 H (3.8-10.6) k/uL RBC 5.51 (4.30-5.90) m/uL Hgb 16.2 (13.0-17.5) gm/dL Hct 50.2 (39.0-53.0) % MCV 91.0 (80.0-100.0) fL MCH 29.4 (25.0-35.0) pg MCHC 32.3 (31.0-37.0) g/dL RDW 12.3 (11.5-15.5) % Plt Count 261 (150-450) k/uL MPV 7.8 Neutrophils % (Manual) 79 % Band Neuts % (Manual) 3 % Lymphocytes % (Manual) 9 % Monocytes % (Manual) 9 % Neutrophils # (Manual) 10.40 H (1.3-7.7) k/uL Lymphocytes # (Manual) 1.14 (1.0-4.8) k/uL Monocytes # (Manual) 1.14 H (0-1.0) k/uL Nucleated RBCs 0 (0-0) /100 WBC Manual Slide Review Performed RBC Morphology Normal Sodium (137-145) mmol/L Potassium (3.5-5.1) mmol/L Chloride (98-107) mmol/L Carbon Dioxide (22-30) mmol/L Anion Gap mmol/L BUN (9-20) mg/dL Creatinine (0.66-1.25) mg/dL Est GFR (CKD-EPI)AfAm (>60 ml/min/1.73 sqM) Est GFR (CKD-EPI)NonAf (>60 ml/min/1.73 sqM) Glucose (74-99) mg/dL Plasma Lactic Acid Brenden (0.7-2.0) mmol/L Calcium (8.4-10.2) mg/dL Total Bilirubin (0.2-1.3) mg/dL AST (17-59) U/L ALT (4-49) U/L Alkaline Phosphatase (38-126) U/L Total Protein (6.3-8.2) g/dL Albumin (3.5-5.0) g/dL Amylase (30-110) U/L Lipase (23-300) U/L Influenza Type A (PCR) Not Detected (Not Detectd) Influenza Type B (PCR) Not Detected (Not Detectd) RSV (PCR) Not Detected (Not Detectd) SARS-CoV-2 (PCR) Not Detected Not Detected (Not Detectd) 01/25/25 01/25/25 Range/Units 14:35 14:35 WBC (3.8-10.6) k/uL RBC (4.30-5.90) m/uL Hgb (13.0-17.5) gm/dL Hct (39.0-53.0) % MCV (80.0-100.0) fL MCH (25.0-35.0) pg MCHC (31.0-37.0) g/dL RDW (11.5-15.5) % Plt Count (150-450) k/uL MPV Neutrophils % (Manual) % Band Neuts % (Manual) % Lymphocytes % (Manual) % Monocytes % (Manual) % Neutrophils # (Manual) (1.3-7.7) k/uL Lymphocytes # (Manual) (1.0-4.8) k/uL Monocytes # (Manual) (0-1.0) k/uL Nucleated RBCs (0-0) /100 WBC Manual Slide Review RBC Morphology Sodium 137 (137-145) mmol/L Potassium 4.3 (3.5-5.1) mmol/L Chloride 104 (98-107) mmol/L Carbon Dioxide 21 L (22-30) mmol/L Anion Gap 12 mmol/L BUN 25 H (9-20) mg/dL Creatinine 0.71 (0.66-1.25) mg/dL Est GFR (CKD-EPI)AfAm >90 (>60 ml/min/1.73 sqM) Est GFR (CKD-EPI)NonAf >90 (>60 ml/min/1.73 sqM) Glucose 104 H (74-99) mg/dL Plasma Lactic Acid Brenden 1.2 (0.7-2.0) mmol/L Calcium 9.2 (8.4-10.2) mg/dL Total Bilirubin 0.9 (0.2-1.3) mg/dL AST 26 (17-59) U/L ALT 46 (4-49) U/L Alkaline Phosphatase 82 (38-126) U/L Total Protein 7.2 (6.3-8.2) g/dL Albumin 4.6 (3.5-5.0) g/dL Amylase 93 (30-110) U/L Lipase 53 (23-300) U/L Influenza Type A (PCR) (Not Detectd) Influenza Type B (PCR) (Not Detectd) RSV (PCR) (Not Detectd) SARS-CoV-2 (PCR) (Not Detectd) Disposition <Eugenia Martin - Last Filed: 01/25/25 15:47> Is patient prescribed a controlled substance at d/c from ED?: No Time of Disposition: 16:38 <Sanjay Larsen - Last Filed: 01/26/25 14:12> Clinical Impression: Food poisoning Disposition: HOME SELF-CARE Condition: Good Instructions (If sedation given, give patient instructions): Acute Nausea and Vomiting (ED) Additional Instructions: Bread, rice, applesauce, tea, toast. Seamus tea/stephanie for nausea. Increase intake of Gatorade/Pedialyte Prescriptions: Ondansetron [Zofran] 4 mg PO Q8HR PRN #10 tab PRN Reason: Nausea Referrals: Josh Cloud MD [Primary Care Provider] - 1-2 days
[2025-01-25] MEDS: SODIUM CHLORIDE 0.9% 1,000 ML IV ONE (14:40)
[2025-01-25] MEDS: ONDANSETRON 4 MG/2 ML VIAL IVP STA (14:41)
[2025-01-25 14:57] LABS: HCT 50.2 % (39.0-53.0); HGB 16.2 gm/dL (13.0-17.5); MCH 29.4 pg (25.0-35.0); MCHC 32.3 g/dL (31.0-37.0); Mean Platelet Volume 7.8; Platelet Count 261 k/uL (150-450); RBC 5.51 m/uL (4.30-5.90); RDW 12.3 % (11.5-15.5); WBC 12.7 k/uL (3.8-10.6)
[2025-01-25] MEDS: KETOROLAC 15 MG/ML 1 ML VIAL IVP STA (15:00)
[2025-01-25 15:03] LABS: Influenza A Not Detected (Not Detectd); Influenza B Not Detected (Not Detectd); RSV Not Detected (Not Detectd)
[2025-01-25 15:34] LABS: ALT 46 U/L (4-49); AST 26 U/L (17-59); African American GFR (CKD) >90 (>60 ml/min/1.73 sqM); Albumin 4.6 g/dL (3.5-5.0); Alkaline Phosphatase 82 U/L (38-126); Amylase 93 U/L (30-110); Anion Gap 12 mmol/L; Blood Urea Nitrogen 25 mg/dL (9-20); Calcium 9.2 mg/dL (8.4-10.2); Carbon Dioxide 21 mmol/L (22-30); Chloride 104 mmol/L (98-107); Lipase 53 U/L (23-300); Non-African American GFR(CKD) >90 (>60 ml/min/1.73 sqM); Potassium 4.3 mmol/L (3.5-5.1); Sodium 137 mmol/L (137-145); Total Bilirubin 0.9 mg/dL (0.2-1.3); Total Protein 7.2 g/dL (6.3-8.2)
[2025-01-25 15:50] LABS: Glucose 104 mg/dL (74-99)
[2025-01-25 16:57] VITALS: BP 154/95; PULSE 83
[2025-01-25 17:02] LABS: Band Neutrophils % 3 %; Lymphocytes # (M) 1.14 k/uL (1.0-4.8); Monocytes # (M) 1.14 k/uL (0-1.0); Neutrophils % (M) 79 %; Nucleated Red Blood Cells 0 /100 WBC (0-0); RBC Morphology Normal; Total Cells Counted 100
== END 2025-01-25 16:54 | disposition home or self-care (01) ==
LOC: EC 13:14
DX: A05.9 Bacterial foodborne intoxication, unspecified (principal); Z90.49 Acquired absence of other specified parts of digestive tract; Z88.8 Allergy status to other drugs, medicaments and biological substances
CPT/HCPCS: 36415; 80053; 82150; 83605; 83690; 85025; 87636; 99284; 96374; 96375; 96361; J2405; J1885; 87635